=== PATIENT | male | born 1960 | race Caucasian/White ===

== ENCOUNTER 2019-06-05 07:58 | Day surgery (SDC) | payer OTHER ==
[~2019-06-05] VITALS: Ht 182.9 cm; Wt 55.2 kg
[2019-06-05] VITALS (9 sets, daily range): BP systolic 105–143; BP diastolic 73–92; PULSE 86–99; RESP 15–69; Ht 182.9 cm; Wt 55.2 kg
[~2019-06-05 07:58] MED LIST: LISI10TA2 ORAL; UMEC1DIS INH
[2019-06-05] MEDS ORDERED: LACTATED RINGER'S 1,000 ML IV SCH (09:00)
[2019-06-05] MEDS ORDERED: COCAINE 4% 4 ML TOP ONE (10:21)
[2019-06-05] MEDS ORDERED: ROCURONIUM 50 MG INJ ONE ×2 (10:46→11:06)
[2019-06-05] MEDS ORDERED: ETOMIDATE 20 MG INJ ONE (10:46)
[2019-06-05] MEDS ORDERED: LIDOCAINE 1% (MDV) 20 ML INJ ONE (10:47)
[2019-06-05] MEDS ORDERED: FENTAnyl 50 MCG/ML VIAL ONE (10:47)
[2019-06-05] MEDS ORDERED: ONDANSETRON 4 MG INJ IV PRN (11:00)
[2019-06-05] MEDS ORDERED: HYDROmorphONE 1 MG/5 ML IV SYRINGE IV PRN ×2 (11:00)
[2019-06-05] MEDS ORDERED: LABETALOL HCL 20MG INJ IV PRN (11:00)
[2019-06-05] MEDS ORDERED: hydrALAzine 20 MG INJ IV PRN (11:00)
[2019-06-05] MEDS ORDERED: MIDAZOLAM 1 MG/ML 2 ML INJ ONE (11:03)
[2019-06-05] MEDS ORDERED: LABETALOL HCL 20MG INJ ONE (11:07)
[2019-06-05] MEDS ORDERED: ONDANSETRON 4 MG INJ ONE (11:07)
[2019-06-05] MEDS ORDERED: SUGAMMADEX SODIUM 200 MG/2 ML VIAL IV ONE (11:20)
[2019-06-05] MEDS ORDERED: HYDROCODONE/APAP (7.5/325) TAB PO PRN (12:00)
== END 2019-06-05 12:45 | disposition home or self-care (01) ==
LOC: SDS 07:58
PROVIDERS: ATTEND Otolaryngology Otolaryngology/Facial Plastic Surgery
DX: D02.0 Carcinoma in situ of larynx (principal); I10 Essential (primary) hypertension; J44.9 Chronic obstructive pulmonary disease, unspecified; Z87.891 Personal history of nicotine dependence
CPT/HCPCS: 31541; 88305; J2250; J2405; J3010; Z7512; Z7610